=== PATIENT | female | born 1980 | race Two or more races ===

== ENCOUNTER 2024-04-08 19:21 | Emergency (ER) | payer MEDICAID, SELFPAY ==
[2024-04-08 19:23] VITALS: BMI 32.3
[2024-04-08 20:09] VITALS: BP 153/87; PULSE 76; RESP 18; TEMP 37.1; O2SAT 100
--- NOTE | 2024-04-08 20:14 | EKG_ITS ---
[facility] Test Date: 2024-04-08 Pat Name: SKYLAR GALDAMEZ Department: Room: - Gender: Female Icing Coater: : 1980 Requested By: Sascha Hamlin Order Number: [id number] Reading MD: Sascha Hamlin Measurements Intervals [place] Rate: 71 P: 9 WV: 172 QRS: 26 QRSD: 95 T: 14 QT: 364 QTc: 397 Interpretive Statements SINUS RHYTHM WITH SINUS ARRHYTHMIA Compared to ECG 08/08/2019 17:40:42 Incomplete right bundle-branch block no longer present ST (T wave) deviation no longer present /store/S0/[id number]/ecg/[id number].pdf
--- NOTE | 2024-04-08 20:14 | PD.EDDIZZY ---
ED Dizzyness RME/HPI General Chief Complaint: Dizziness Stated Complaint: DIZZINESS WHEN EYES CLOSED Time Seen by Provider: 04/08/24 20:14 Source: patient and family Arrival date/time: 04/08/24 19:21 Mode of arrival: ambulatory Limitations: no limitations RME / HPI RME / HPI Narrative: Dr. Esposito?s Main ED Evaluation: The patient is a 43-year-old ambulatory female who presents to the emergency department with dizziness and left-sided chest discomfort. She reports that the dizziness occurs when she closes her eyes and resolves within about one minute after reopening them. She also experiences mild nausea but denies any ear pain. The patient states that this is her first episode of dizziness and denies any prior history of similar symptoms, chest pain, or myocardial infarction (DC). However, she reports a family history of her father passing away at age 90 due to an DC. She denies any other associated symptoms or medical complaints. Related Data Previous Rx's ?Medication ?Instructions ?Recorded meclizine 25 mg tablet 25 mg PO TID PRN dizziness #20 tabs 04/08/24 Allergies Allergy/AdvReac Type Severity Reaction Status Date / Time shrimp Allergy Severe Hives Verified 04/08/24 19:26 Review of Systems Review of Systems Systems Reviewed: All systems reviewed, normal except as documented Past Medical History Past Medical History CARDIAC: Negative Congestive Heart Failure RESPIRATORY: Negative Chronic Obstructive Pulmonary Disease (COPD) GENITOURINARY: Negative Renal Disease ENDOCRINE: Negative Diabetes Mellitus Type 1 or Diabetes Mellitus Type 2 OTHER HISTORY: Positive Blood Transfusions Social History SMOKING STATUS: Never smoker ED Exam Narrative Physical exam: GENERAL APPEARANCE: alert and oriented x 4, well-developed, well-nourished, no acute distress VITALS: All vitals were reviewed and the pulse ox is 100% on room air, which is normal according to my interpretation. HEENT: Normocephalic, atraumatic; pupils equal, round, reactive to light; EOMI; mucous membranes pink, moist; oropharynx clear. Right sided horizontal nystagmus. NECK: Supple LUNGS: CTABL; no wheezes, no rales, no rhonchi HEART: Regular rate, regular rhythm; normal S1, S2; no murmurs ABDOMEN: non distended; normal BS; soft, no tenderness, no guarding, no rebound; no masses, no organomegaly, no hernia BACK: no CVA tenderness EXTREMITIES: atraumatic; no edema NEUROLOGIC: awake; alert and oriented x4; cranial nerves II-XII grossly intact; no focal sensory or motor deficits. No abnormal gait or balance issues. No upper extremity coordination deficits. Able to follow commands without difficulty. PSYCHIATRIC: appropriate mood and affect SKIN: warm, dry, normal color; no rashes General Limitations: Present no limitations Course Quality Measures none Orders Category Date Time Status EKG (ED ONLY) *Do not use* NOW Care 04/08/24 20:14 Completed EKG (ED ONLY) *Do not use* NOW Care 04/08/24 20:16 Completed EKG (ED Only) Stat Exams 04/08/24 20:14 Draft EKG (ED Only) Stat Exams 04/08/24 20:16 Ordered Meclizine HCl [Antivert] Med 04/08/24 20:14 Discontinued 25 mg PO X1 ONE Reevaluation(s) Reevaluation #1: Patient was placed in ED observation for 1 hour secondary to patient's complaints of vertigo-related symptoms. Patient states symptoms have had some improvement but she has a headache. Time: 21:47 Vital Signs Vital signs: Vital Signs Temperature 98.7 F 04/08/24 20:09 Pulse Rate 76 04/08/24 20:09 Respiratory Rate 18 04/08/24 20:09 Blood Pressure 153/87 H 04/08/24 20:09 Pulse Oximetry (%) 100 04/08/24 20:09 Procedures -ED Procedure Comment EKG manual reading, 04/08/242020 hours, my interpretation: NSR, rate: 71 bpm, normal axis, no ectopy, no ischemic changes, no ST elevation Dizziness MDM Narrative MDM Narrative:: Scribe Attestation: I, Jaylene Tristan, am scribing for and in the presence of Dr. Esposito. Provider Notation: Although this document has been carefully reviewed, there may still be some phonetic and other typographical errors. These errors are purely grammatical due to imperfections in the software program and should not be construed in any way to compromise the substance of the patient's medical care during this visit. Patient data External records reviewed:: [facility] previous records Clinical information provided by:: patient Social determinants that could affect healthcare access:: none Patient has the following chronic illnesses:: See PMH How is presenting disease/condition affected by chronic disease/condition?: uneffected by Evaluation data The following diagnostics were reviewed and interpreted by me:: EKG tracing(s) Lab and/or radiology exams considered but not ordered:: None Interpretation Summary: See procedure for EKG interpretation Medications / Prescriptions Medications or Prescriptions considered but not ordered:: None Medication administrations:: Medication Administration History Discontinued Medications Meclizine HCl (Meclizine Hcl 25 Mg Tablet) 25 mg PO X1 ONE Stop: 04/08/24 20:15 Last Admin: 04/08/24 20:19 Dose: 25 mg Documented By: CVL As above, if any Consultations Consultation(s) initiated? (list below): No Diagnosis Dizziness Differential Diagnosis: other (Peripheral vertigo vs Central vertigo vs Near syncope) Most likely diagnosis given after review of the tests above:: See clinical impression below Admission Indicated Admission indicated?: not indicated Admission Request Was there a request for admission?: No Disposition Plan Disposition Plan: Discharge Discharge Attestation Discharge Attestation: The patient and all family members were given an opportunity to ask questions and understood the discharge instructions. Discharge instructions specifically effects, indications for sooner follow up or return to the emergency department, and the expected course of current diagnosis. Patient condition: Stable Discharge Plan Plan Patient Disposition: HOME (Self Care) Disposition Comment: Stable for discharge Patient condition on transfer: Stable Prescriptions/Referrals Prescriptions/Med Rec: New meclizine 25 mg tablet 25 mg PO TID PRN (Reason: dizziness) Qty: 20 0RF Referrals: [facility] [Outside] - In 1 week Problem List Clinical Impression: Episodic peripheral vertigo Patient/Caregiver Discharge Instructions Discharge Activity: activity as tolerated Education Materials: Anatomy of the Inner Ear, Vertigo Medicine Tx, Vertigo Staying Safe, ED BPV Vertigo Additional Instructions: Please return to the emergency department for any worsening or any further medical problems Otherwise you should follow-up with your primary care doctor or at the [facility] within the next several days Print Language: Maltese Stand Alone Forms: Svetlana Award Info., Patient Portal Info Letter
[2024-04-08] MEDS: MECLIZINE HCL 25 MG TABLET PO ×2 (20:19→21:57)
[2024-04-08 21:43] VITALS: BP 136/83; PULSE 76; RESP 18; TEMP 36.9; O2SAT 97
[2024-04-08] MEDS: METOCLOPRAMIDE 5 MG TABLET 10 MG PO (21:57)
[2024-04-08] MEDS: IBUPROFEN TAB 600 MG TABLET PO (21:57)
== END 2024-04-08 22:05 | disposition home or self-care (01) ==
LOC: SERX 21:58
PROVIDERS: Emergency Provider Emergency Medicine; PCP Family Medicine
DX: H81.399 Other peripheral vertigo, unspecified ear (principal); I49.8 Other specified cardiac arrhythmias
CPT/HCPCS: 93005; 99283; A9270

== ENCOUNTER 2024-07-29 07:00 | Day surgery (SDC) | payer MEDICAID, SELFPAY ==
[2024-07-28 12:46] VITALS: BMI 35.6
[2024-07-28 13:33] LABS: Basophils # (Auto) 0.1 Thou/mm3 (0.0-0.2); Basophils % (Auto) 1 % (0-2.5); Eosinophils # (Auto) 0.1 Thou/mm3 (0.0-0.5); Eosinophils % (Auto) 2 % (0-10); Hematocrit 39.2 % (36.0-46.0); Hemoglobin 13.1 g/dL (12.0-16.0); Immature Granulocytes % (Auto) 0 % (0-0); Immature Granulocytes Auto 0.01 Thou/mm3 (0.00-0.00); Lymphocytes # (Auto) 2.6 Thou/mm3 (1.0-4.8); Lymphocytes % (Auto) 31 % (10-50); Mean Corpuscular HGB Conc 33.4 g/dl (31.0-37.0); Mean Corpuscular Hemoglobin 27.6 pg (25.0-35.0); Mean Corpuscular Volume 83 fL (80-100); Monocytes # (Auto) 0.7 Thou/mm3 (0.0-0.8); Monocytes % (Auto) 8 % (0-12); Neutrophils # (Auto) 4.9 Thou/mm3 (1.8-7.7); Neutrophils % (Auto) 58 % (37-80); Nucleated Red Blood Cell % 0 /100 WBC (0); Platelet Count 273 Thou/mm3 (140-440); RDW Standard Deviation 44.9 fL (36.4-46.3); Red Blood Count 4.75 Miln/mm3 (4.00-5.20); White Blood Count 8.3 Thou/mm3 (3.6-11.0)
[2024-07-28 14:02] LABS: HCG,Qualitative Serum Negative
[2024-07-28 14:52] LABS: Hepatitis A Antibody IgM Non Reactive (Non React); Hepatitis B Core Antibody IgM Non Reactive (Non React); Hepatitis B Surface Antigen Non Reactive (Non React); Hepatitis C Antibody Non Reactive (Non React)
--- NOTE | 2024-07-28 15:30 | ESHP_ITS ---
Documentation for date of: 07/28/24 REIMBURSEMENT REPRESENTATIVE - HPI History of Present Illness History of present illness: Ms. GALDAMEZ is a 43 year old female p3, admitetd for cervical conization . Patinet denied any vaginal concerns . Previosu Csection x3. All concerns addressed, has a implant for control , No other medical history Review of Systems Review of Systems Systems Reviewed: All systems reviewed, normal except as documented Meds Home Medications and Allergies Home Medications ?Medication ?Instructions ?Recorded ?Confirmed ?Type No Known Home Medications 07/28/2407/10 History Allergies Allergy/AdvReac Type Severity Reaction Status Date / Time shrimp Allergy Severe Hives Verified 07/28/24 12:45 Exam - REIMBURSEMENT REPRESENTATIVE Constitutional Constitutional: no acute distress Routine HEENT Exam Head: Present normocephalic and atraumatic Eye: Present EOMI and PERRL ENT: Present mucous membranes moist Routine Neck Exam Neck: Present supple and trachea midline Routine Respiratory Exam Respiratory: Present chest non-tender, lungs clear, normal breath sounds and no resp distress Routine Cardiovascular Exam Cardiovascular: Present RRR Routine Abdominal Exam Abdominal: Present soft and normoactive bowel sounds Routine Extremities Exam Extremities: Present full ROM Routine Skin Exam Skin: Present intact and dry Routine Neurological Exam Neurological: Present alert, oriented X3 and CN II-XII intact Routine Psychiatric Exam Psychiatric: Present normal affect and normal thought process REIMBURSEMENT REPRESENTATIVE - Results Labs 07/28/24 13:13 Labs: Short CBC 07/28/24 Range/Units 13:13 WBC 8.3 (3.6-11.0) Thou/mm3 Hgb 13.1 (12.0-16.0) g/dL Hct 39.2 (36.0-46.0) % Plt Count 273 (140-440) Thou/mm3 Impressions Impression: 43 y/o p3, all Csection admitted for cervical conization pap background:ASC-H+HPV Colpo : RAJAT 2-3 Patient was made aware that cold knife conization is removal of conical shape of cervix typically including the dysplastic cells, however chances of margin positivity exist , can only be confirmed after pathology examination. Alternative of hysterectomy discussedRisk of surgery includes bleeding , infectionIts an outpatnet surgery and anticipated discharge same day Quality Measures Quality Measures VTE prophylaxis
[2024-07-28 15:39] LABS: HIV (1&2) Antibody Rapid Non-Reactive
[2024-07-29] VITALS (7 sets, daily range): BP systolic 114–139; BP diastolic 69–97; PULSE 58–80; RESP 12–18; TEMP 36.1–36.6; O2SAT 97–100; BMI 32.8
[2024-07-29] MEDS: RINGERS LACTATED 1000 ML 1,000 ML 20 ML IV (07:47)
--- NOTE | 2024-07-29 09:28 | SUR.PHASEI ---
pt received from OR in recovery bay 5. pt obtunded, breathing unlabored on oxymask 8l, oral airway in place. v/s stable. pt dressing peripad cdi. report received from Misael DAWSON and Cathy DUNN.
--- NOTE | 2024-07-29 09:31 | PD.GYNPROC ---
Operative Note - PRIMARY CARE COORDINATOR Procedure Date of procedure: 07/29/24 Procedure Performed: Cervical cone biopsy Indication: Severe cervical dysplasia ( RAJAT-2-3) Pre-Op diagnosis: Colposcopy RAJAT-2 3 Pap ASCUS high plus HPV Post-Op diagnosis: Same Anesthesia type: General Procedure description: The patient was taken back to the operating room and prepped and draped in a sterile fashion. General anesthesia was deemed to be adequate. A time-out was performed to confirm correct patient is Ana Landry and correct procedure is cervical cone biopsy. The patient was then positioned on the operating room in the dorsolithotomy position. A bimanual examination was performed and the uterus was noted to be small, anteverted in size yet mobile. The cervix was visualized with the aid of a David. Local anesthesia with dilute vasopressin was injected circumferentially around the cervix to aid in hemostasis. Utilizing 0 Vicryl we suture ligated the cervix at 3 and 9 o'clock positions to aid in decreased bleeding to ligate the cervical branch of the uterine arteries. Once the cervix was visualized to be pale, with a scalpel were able to circumferentially remove a cone specimen of the cervix, again prior to excising that cone, we placed a Hegar dilator to protect our margins. Once the cone specimen was removed. Minimal amount of bleeding was noted. We controlled that with ball electrocautery and munsol solution. We then deemed the procedure complete. Hemostasis was obtained. We removed the speculum as well as the David. Sponge, lap and instrument counts were correct x2. The patient was transferred to the recovery room in stable condition Estimated blood loss (ml): 10 Complications: none Surgical staff Operation Date: 07/29/24 09:00 Case Staff ADVERTISEMENT DISTRIBUTOR: Danis Barber Diagnosis Problem List Completed Was Problem List Reviewed/Reconciled?: Yes
--- NOTE | 2024-07-29 09:53 | SUR.PHASEI ---
pt able to tolerate oral fluids without difficulty swallowing or nausea/vomiting.
--- NOTE | 2024-07-29 10:34 | SUR.PHASEII ---
pt awake and alert, breathing unlabored on room air. v/s stable. pt dressing peripad cdi. pt able to ambulate to wheelchair with steady gait. d/c instructions given with Sebastina in room using [place] [place] [id number], all questions answered. pt d/c via wheelchair with all belongings.
== END 2024-07-29 10:34 | disposition home or self-care (01) ==
PROVIDERS: PCP Family Medicine; Referring Provider Student in an Organized Health Care Education/Training Program; Visit Provider Student in an Organized Health Care Education/Training Program
PROC: 0UBC7ZZ Excision of Cervix, Via Natural or Artificial Opening (ICD-10-PCS; CPT 57520; principal; 2024-07-29 09:00)
DX: R87.613 High grade squamous intraepithelial lesion on cytologic smear of cervix (HGSIL) (principal); Z01.810 Encounter for preprocedural cardiovascular examination
CPT/HCPCS: 57520; 36415; 80074; 84703; 85025; 86703; 86850; 86900; 86901; A4217; A4649; J0131; J0690; J1100; J2250; J2405; J2598; J2704; J3010; J3490; J7120